=== PATIENT | female | born 2000 | race Caucasian/White ===

== ENCOUNTER 2023-01-06 00:20 | Emergency (ER) | payer OTHER, MEDICAID ==
[~2023-01-06] VITALS: Ht 147.3 cm; Wt 65.8 kg
[2023-01-06 00:24] VITALS: BP 116/73; PULSE 115; RESP 18; TEMP 98; O2SAT 96
== END 2023-01-06 00:56 ==
LOC: MED 00:20
DX: Z02.89 Encounter for other administrative examinations (principal); V89.2XXA Person injured in unspecified motor-vehicle accident, traffic, initial encounter; Y93.89 Activity, other specified; Y92.89 Other specified places as the place of occurrence of the external cause; Y99.8 Other external cause status
CPT/HCPCS: 99283